=== PATIENT | male | born 1975 | race African-American/Black ===

== ENCOUNTER 2025-05-12 21:05 | Emergency (ER) | payer BC, SELFPAY ==
[2025-05-12] VITALS (12 sets, daily range): BP systolic 116–124; BP diastolic 84–89; PULSE 73–84; RESP 11–20; TEMP 36.6; O2SAT 98–100
--- NOTE | ~2025-05-12 | XR_ITS ---
EXAMINATION: XR chest 1V portable 05/12/2025 21:34 INDICATION: Chest pain and vision changes. Near-syncope. PROCEDURE: AP portable chest COMPARISON: 09/07/2015 FINDINGS: The lungs are clear. The cardiomediastinal silhouette is within normal limits. There are no pleural effusions. There is no pneumothorax suspected. IMPRESSION: 1: NO ACUTE CARDIOPULMONARY DISEASE. Reviewed, dictated and finalized at location O.
--- NOTE | 2025-05-12 21:12 | ECG_ITS ---
Test Date: 2025-05-12 21:07:45 Measurements Intervals [place] Rate: 77 P: 61 AK: 172 QRS: 15 QRSD: 94 T: 22 QT: 373 QTc: 424 Interpretive Statements SINUS RHYTHM No previous ECG available for comparison Electronically Signed On 05-14-2025 20:36:48 CDT by Alfredo Lopez D.O
[2025-05-12 21:33] LABS: Hematocrit 39.4 % (42.0-52.0); Hemoglobin 13.7 g/dL (14.0-18.0); Immature Granulocyte Percent A 0.2 % (0-0.5); Lymphocytes Absolute Auto 3.27 K/mm3 (0.9-3.2); Mean Corpuscular HGB Conc 34.8 g/dl (32-36); Mean Corpuscular Hemoglobin 32.3 pg (26-34); Mean Corpuscular Volume 92.9 fl (80-100); Nucleated Red Blood Cells Absolute Auto 0.000 K/mm3 (0.0-0.012); Nucleated Red Blood Cells Perc 0.0 % (0.0-0.2); Platelet Count Result 206 k/mm3 (150-375); Red Blood Count 4.24 M/mm3 (4.6-6.20); White Blood Count 6.1 K/mm3 (4.5-10.0)
--- OUTSIDE RECORDS SUMMARY | 2025-05-12 21:37 | XMS_ITS | Clinical Summary ---
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 Name Role Phone Linda Zhou MD Primary Care Provider [phone]- [phone] Allergies No known active allergies Medications No known medications Active Problems No known active problems Immunizations Immunization Administration Dates Next Due Tdap 01/02/2025 Social History Tobacco Use Types Packs/Day Years Used Date Smoking Tobacco: Never Smokeless Tobacco: Never Alcohol Use Standard Drinks/Week Comments Yes 0 (1 standard drink = 0.6 oz pur e alcohol) Sex and Gender Information Value Date Recorded Sex Assigned at Not on file 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 Gender Identity Not on file Sexual Orientation Not on file Obstetrics History Last Filed Vital Signs Vital Sign Reading Time Taken Comments Blood Pressure 132/93 01/02/2025 7:37 PM CDT Pulse 77 01/02/2025 7:37 PM CDT Temperature 37.1 C (98.8 F) 01/02/2025 7:37 PM CDT Respiratory Rate 21 01/02/2025 7:37 PM CDT Oxygen Saturation 97% 01/02/2025 7:37 PM CDT Inhaled Oxygen Concentration - - Weight 81.2 kg (179 lb) 01/02/2025 7:37 PM CDT Height 172.7 cm (5' 8) 01/02/2025 7:37 PM CDT Body Mass Index 27.22 01/02/2025 7:37 PM CDT Plan of Treatment Health Maintenance Due Date Last Done Comments Colon Cancer Screening-Colonoscopy 1975 Depression Screening 1975 Hepatitis C Screening 1975 Prostate Cancer Screening-PSA 1975 Hepatitis B Screening 1993 Regular Well Visit/Exam 18-64 1993 Covid-19 Vaccine (4 - 2025-2 6 season) 2025 01/06/2022, 05/01/2021, 04/03/2021 Influenza Vaccine (#1) 2025 Zoster Vaccine (1 of 2) 2025 DTaP/Tdap/Td Vaccine (2 - Td or Tdap) 01/02/2035 01/02/2025 Pneumococcal vaccine <65 Aged Out No longer eligible based on patient's age to complete this topic Insurance [facility] [employer] Care Teams Farm General Manager Relationship Specialty Start Date End Date Linda Zhou MD [address], [place] [id number] PCP - General Rheumatology 01/02/25
[2025-05-12 21:42] LABS: Alanine Aminotransferase 25 U/L (6-50); Albumin Level 4.4 g/dL (3.5-5.1); Alkaline Phosphatase 69 U/L (38-126); Anion Gap 10 mmol/L (4-12); Aspartate Amino Transferase 41 U/L (17-59); Bilirubin,Total 0.6 mg/dL (0.2-1.3); Blood Urea Nitrogen 11 mg/dL (9-20); Calcium 8.9 mg/dL (8.4-10.2); Carbon Dioxide 24 mmol/L (22-30); Chloride 102 mmol/L (98-107); Estimated CRCL calculation 63 ml/min; Estimated Glomerular Filt Rate > 60; Glucose 120 mg/dL (65-110); Lipase 349 U/L (23-300); Magnesium 2.1 mg/dL (1.6-2.3); Potassium 3.4 mmol/L (3.4-5.0); Sodium 136 mmol/L (137-145); Total Protein 7.4 g/dL (6.3-8.2)
[2025-05-12 21:54] LABS: NT Pro B Type Natriuretic Pept < 20 pg/mL (19.9-100); Troponin I < 0.012 ng/mL (0.000-0.034)
[2025-05-12 21:59] LABS: INR 1.0; Partial Thromboplastin Time 25.6 Seconds (22.3-36.8); Prothrombin Time 13.7 Seconds (11.1-14.7)
--- NOTE | 2025-05-12 23:16 | PC.NURSE ---
This RN received report from Delaney ALVAREZ at [phone].
--- NOTE | 2025-05-12 23:20 | PC.NURSE ---
Report to GONZALO ALVAREZ
[2025-05-12] MEDS: SODIUM CHLORIDE 0.9% IV 1,000 ML 999 ML IV CONT (23:22)
--- NOTE | 2025-05-13 00:17 | ECG_ITS ---
Test Date: 2025-05-13 00:23:09 Measurements Intervals [place] Rate: 82 P: 52 DC: 167 QRS: -4 QRSD: 87 T: 5 QT: 374 QTc: 437 Interpretive Statements SINUS RHYTHM MINIMAL VOLTAGE CRITERIA FOR LVH, CONSIDER NORMAL VARIANT Electronically Signed On 05-14-2025 20:36:55 CDT by Alfredo Lopez D.O
[2025-05-13 00:31] VITALS: PULSE 84; RESP 17; O2SAT 98
[2025-05-13 00:45] VITALS: PULSE 79; RESP 15; O2SAT 98
[2025-05-13 00:50] LABS: Troponin I < 0.012 ng/mL (0.000-0.034)
--- NOTE | 2025-05-13 01:17 | ED.CHESTPAIN ---
HPI - Chest Pain General Chief Complaint: Chest Pain Stated Complaint: pale/cool/diaphoretic History of Present Illness HPI narrative: Patient is a 50-year-old male who presents emergency department this evening via EMS due to near syncopal/vasovagal episode. Patient states that he was standing when he felt faint. Upon EMS arrival, they did notice that he was bradycardic. Initial blood pressure 100 over 60 mmHg. Otherwise patient denies any symptoms at this time including any chest pain or shortness of breath. Patient did not fully syncopized, did not fall or hit his head. Denies any significant past medical history and states that he does not take any medications. Related Data Allergies Allergy/AdvReac Type Severity Reaction Status Date / Time No Known Allergies Allergy Unverified 08/13/18 08:06 Review of Systems Review of Systems: All systems are reviewed and are negative unless stated otherwise in the HPI. [facility] Social History Social History Smoking status: Never smoker Exam Narrative: General: Alert, awake, afebrile, in no acute distress. HEENT: PERRL, no rhinorrhea, no post nasal drip, oropharynx clear. Neck: Trachea midline, no JVD, no lymphadenopathy. Cardiovascular: Regular rate and rhythm, no murmurs, rubs or gallops, no peripheral edema. Respiratory: Clear to auscultation bilaterally, no tachypnea, no wheezing, no rhonchi, no rubs, no respiratory distress. Abdomen: Soft, nontender, nondistended, no rebound, no guarding, no peritoneal signs. Musculoskeletal: No joint swelling or deformity, normal muscle tone. Skin: No rashes or petechia, no signs of infection. Psychiatric: Alert and oriented, normal behavior and judgment for situation. Neurological: Alert and oriented to person, place, and time. Follows all commands. No focal deficits, speech is clear and fluent. Course Vital Signs Vital signs: Vital Signs Temperature 97.8 F 05/12/25 21:05 Pulse Rate 77 05/12/25 21:05 Respiratory Rate 17 05/12/25 21:05 Blood Pressure 119/86 05/12/25 21:05 Pulse Oximetry 100 05/12/25 21:05 Oxygen Delivery Room Air 05/12/25 21:05 Temperature 97.8 F 05/12/25 21:05 Pulse Rate 80 05/12/25 22:15 Respiratory Rate 14 05/12/25 22:15 Blood Pressure 121/85 05/12/25 22:15 Pulse Oximetry 100 05/12/25 22:15 Oxygen Delivery Room Air 05/12/25 21:15 MDM - Chest Pain MDM Narrative Medical decision making narrative: The patient was evaluated by myself in the emergency department. History is obtained from patient who is an independent historian and physical exam was performed. External medical records were reviewed at this time. IV was established and pertinent tests were ordered. Patient was administered 1 L IV fluid bolus with normal saline. EKG was obtained which revealed T-wave inversion noted in lead [address] elevations otherwise no evidence of acute ischemia. EKG was independently interpreted by me and is currently pending official cardiology read. Laboratory results obtained revealing no acute process. Two sets of troponins were obtained and both noted to be negative. Patient was informed of these findings at bedside. Informed of the nonspecific EKG changes and informed that he will need to follow-up with the watch inspector final movement for further evaluation including a stress test and patient is in agreement. Imaging studies obtained included CXR which was independently interpreted by me revealing no acute process, which is pending final radiology interpretation. Differential diagnosis considerations include vasovagal, orthostatic hypotension, dehydration, electrolyte derangements, acute viral syndrome, acute coronary syndrome, infectious process such as pneumonia. Patient has a low heart score of 2. Comorbidities impacting this visit include none. I have evaluated and discussed social determinants of health with the patient that could potentially impact subsequent diagnosis and treatment plans. On repeat assessment of the patient, reevaluation revealed that the patient is doing well and is in no acute distress. Patient symptoms have improved since he arrived to our emergency department. Repeat vital signs were all reviewed and noted to be stable. Differential diagnosis and treatment plan were discussed with the patient at bedside. Patient agrees with discussion and after shared medical decision making agrees with discharge. All questions were answered to the patient's satisfaction. Patient will follow up with Cardiology in 3-5 days. Patient was provided with strict return precautions and instructed to return to the emergency department if any new or worsening symptoms develop. The patient was discharged in stable condition. Lab Data 05/12/25 21:19 05/12/25 21:20 Labs: Lab Results 05/12/25 05/12/2505/12/25 Range/Units 21:19 21:20 21:22 WBC 6.1 (4.5-10.0) K/mm3 RBC 4.24 L (4.6-6.20) M/mm3 Hgb 13.7 L (14.0-18.0) g/dL Hct 39.4 L (42.0-52.0) % MCV 92.9 (80-100) fl MCH 32.3 (26-34) pg MCHC 34.8 (32-36) g/dl RDW 13.0 (11.5-14.5) % Plt Count 206 (150-375) k/mm3 MPV 8.9 (7.4-10.4) fl Immature Gran % (Auto) 0.2 (0-0.5) % Neut % (Auto) 37.7 L (45.5-73.1) % Lymph % (Auto) 53.6 H (18.3-44.2) % [place] % (Auto) 6.9 (2.6-8.5) % Eos % (Auto) 1.1 (0-4.4) % Baso % (Auto) 0.5 (0.2-1.2) % Lymph # (Auto) 3.27 H (0.9-3.2) K/mm3 [place]gs # (Auto) 0.4 (0.1-0.6) K/mm3 Eos # (Auto) 0.1 (0-0.3) K/mm3 Baso # (Auto) 0.0 (0.0-0.1) K/mm3 Abs Immat Gran (auto) 0.01 (0.00-0.031) K/mm3 Absolute Neuts (auto) 2.3 (1.3-6.7) K/mm3 Absolute Nucleated RBC 0.000 (0.0-0.012) K/mm3 Nucleated RBC % 0.0 (0.0-0.2) % PT 13.7 (11.1-14.7) Seconds INR 1.0 APTT 25.6 (22.3-36.8) Seconds Sodium 136 L (137-145) mmol/L Potassium 3.4 (3.4-5.0) mmol/L Chloride 102 (98-107) mmol/L Carbon Dioxide 24 (22-30) mmol/L Anion Gap 10 (4-12) mmol/L BUN 11 (9-20) mg/dL Creatinine 1.22 (0.7-1.3) mg/dL Estim Creat Clear Calc 63 ml/min Estimated GFR > 60 (59 - ) Glucose 120 H (65-110) mg/dL Calcium 8.9 (8.4-10.2) mg/dL Magnesium 2.1 (1.6-2.3) mg/dL Total Bilirubin 0.6 (0.2-1.3) mg/dL AST 41 (17-59) U/L ALT 25 (6-50) U/L Alkaline Phosphatase 69 (38-126) U/L Troponin I < 0.012 (0.000-0.034) ng/mL NT-Pro-B Natriuret Pep < 20 (19.9-100) pg/mL Total Protein 7.4 (6.3-8.2) g/dL Albumin 4.4 (3.5-5.1) g/dL Lipase 349 H (23-300) U/L 05/13/25 Range/Units 00:24 WBC (4.5-10.0) K/mm3 RBC (4.6-6.20) M/mm3 Hgb (14.0-18.0) g/dL Hct (42.0-52.0) % MCV (80-100) fl MCH (26-34) pg MCHC (32-36) g/dl RDW (11.5-14.5) % Plt Count (150-375) k/mm3 MPV (7.4-10.4) fl Immature Gran % (Auto) (0-0.5) % Neut % (Auto) (45.5-73.1) % Lymph % (Auto) (18.3-44.2) % Griggs % (Auto) (2.6-8.5) % Eos % (Auto) (0-4.4) % Baso % (Auto) (0.2-1.2) % Lymph # (Auto) (0.9-3.2) K/mm3 [place]gs # (Auto) (0.1-0.6) K/mm3 Eos # (Auto) (0-0.3) K/mm3 Baso # (Auto) (0.0-0.1) K/mm3 Abs Immat Gran (auto) (0.00-0.031) K/mm3 Absolute Neuts (auto) (1.3-6.7) K/mm3 Absolute Nucleated RBC (0.0-0.012) K/mm3 Nucleated RBC % (0.0-0.2) % PT (11.1-14.7) Seconds INR APTT (22.3-36.8) Seconds Sodium (137-145) mmol/L Potassium (3.4-5.0) mmol/L Chloride (98-107) mmol/L Carbon Dioxide (22-30) mmol/L Anion Gap (4-12) mmol/L BUN (9-20) mg/dL Creatinine (0.7-1.3) mg/dL Estim Creat Clear Calc ml/min Estimated GFR (59 - ) Glucose (65-110) mg/dL Calcium (8.4-10.2) mg/dL Magnesium (1.6-2.3) mg/dL Total Bilirubin (0.2-1.3) mg/dL AST (17-59) U/L ALT (6-50) U/L Alkaline Phosphatase (38-126) U/L Troponin I < 0.012 (0.000-0.034) ng/mL NT-Pro-B Natriuret Pep (19.9-100) pg/mL Total Protein (6.3-8.2) g/dL Albumin (3.5-5.1) g/dL Lipase (23-300) U/L Discharge Plan Discharge Clinical Impression: Near syncope Patient Disposition: Home Condition: Improved Instructions: Antibiotic Form, Near Syncope (ED) Additional Instructions: Please follow-up with the watch inspector final movement to a provided with today within the next 3-5 days. Call on Thursday to set up a follow-up appointment. Return to ED if any new or worsening symptoms develop. Patient Language: Welsh Follow-up/Referrals: Linda Zhou [Other] Deonna Burgos MD [Physician, Cardiology] - 3 Days Time of Disposition: 01:18
[2025-05-13 01:27] VITALS: PULSE 82; RESP 19; O2SAT 95
[2025-05-13 01:30] VITALS: PULSE 82; RESP 19; O2SAT 96
[2025-05-13 01:48] VITALS: BP 121/85; PULSE 80; RESP 14; O2SAT 100
== END 2025-05-13 01:40 | disposition home or self-care (01) ==
PROVIDERS: Emergency Provider Emergency Medicine
DX: R55 Syncope and collapse (principal)
CPT/HCPCS: 36415; 71045; 80053; 83690; 83735; 83880; 84484; 85025; 85610; 85730; 93005; 96360; 99284; J7030